=== PATIENT | male | born 1985 | race Caucasian/White ===

== ENCOUNTER 2020-06-29 06:54 | Outpatient (NON) | payer OTHER, SELFPAY ==
[2020-06-29 21:48] LABS: SARS-CoV-2 RNA PCR Negative
== END 2020-06-29 06:55 ==
LOC: ANHCOVIDDT 06:55
PROVIDERS: PCP Family Medicine; Visit Provider Physician Assistant
DX: R68.89 Other general symptoms and signs (principal); Z20.828 Contact with and (suspected) exposure to other viral communicable diseases
CPT/HCPCS: 87635; C9803; U0003

== ENCOUNTER 2021-01-06 19:43 | Emergency (ER) | payer OTHER, SELFPAY ==
--- NOTE | ~2021-01-06 | XR_ITS ---
EXAMINATION: XR chest 2V 01/06/2021 20:14 INDICATION: Chest palpitations PROCEDURE: 2 view chest COMPARISON: Comparison to multiple prior studies sequentially, with oldest reviewed study dated 02/20. FINDINGS: The lungs are clear. The cardiomediastinal silhouette is within normal limits. There are no pleural effusions. There is no pneumothorax suspected. IMPRESSION: 1: NO ACUTE CARDIOPULMONARY DISEASE. Reviewed, dictated and finalized at location A.
[2021-01-06 19:45] VITALS: BP 147/82; PULSE 60; RESP 16; TEMP 36.6; O2SAT 100
--- NOTE | 2021-01-06 19:47 | ECG_ITS ---
Measurements Intervals [place] Rate: 58 P: 64 NM: 162 QRS: 77 QRSD: 109 T: 59 QT: 402 QTc: 397 Interpretive Statements SINUS BRADYCARDIA INCOMPLETE RIGHT BUNDLE BRANCH BLOCK BASELINE ARTIFACT- AVF BORDERLINE ECG Electronically Signed On 01-06-2021 20:14:25 CDT by Romario Sandhu D.O.
--- NOTE | 2021-01-06 20:02 | ED.GENADULT ---
HPI - General Adult General Chief complaint: Arrhythmia/Palpitations Stated complaint: chest tingling Time Seen by Provider: 01/06/21 19:50 Source: RN notes reviewed History of Present Illness HPI narrative: Patient presents to emergency department from home for palpitations. Patient states that he just finished eating dinner when he began to feel funny feeling in his chest with a feeling of palpitations he states that he has had a history of arrhythmias with a work-up including several visits to cardiology since his late 20s with him stating they did find that he had occasional arrhythmia but cannot recall the exact name he states that with the symptoms today he developed metallic taste in his mouth as well as tingling in his right arm he states his symptoms are improved at this time he denies any fevers or chills chest pain abdominal pain nausea vomiting or any other symptoms Related Data Home Medications Medication Instructions Recorded Confirmed multivitamin 1 tablet PO DAILY 07/25/20 01/06/21 omega-3 fatty acids 1,000 mg 1,000 mg PO DAILY 07/25/20 01/06/21 capsule Allergies Allergy/AdvReac Type Severity Reaction Status Date / Time No Known Allergies Allergy Verified 01/06/21 19:48 Review of Systems Review of Systems: Narrative: Gen.: Denies fevers or chills Eyes: Denies eye pain or visual change ENT: Denies congestion Respiratory: Denies shortness of breath or cough CV: See HPI GI: Denies abdominal pain nausea, emesis or diarrhea Musculoskeletal: Denies back pain or muscle pain Neuro: Pain in right arm denies weakness Skin: Denies rash Except as documented, all other systems reviewed and negative [facility] Past Medical History Medical History (Updated 01/06/21 @ 23:36 by Ayan Parker DO) Anxiety Palpitations Surgical History Surgical History History of hernia surgery History of knee surgery Hx of tonsillectomy Family History Family History Other No pertinent family history Social History Social History Smoking status: Never smoker Second hand tobacco smoke exposure: No Alcohol intake: current Alcohol use details: Social only. Substance use: never Substance use type: does not use Gender identity (if verbalized by the patient): Male Spiritual care concerns: Yes Agree to blood products: Yes Exam Narrative: Exam Narrative: APPEARANCE: No acute distress, nontoxic, resting in bed EYES: EOMI HEENT: Normocephalic, atraumatic, OMM RESPIRATORY: No respiratory distress Clear to auscultation bilaterally with no rhonchi wheezing or rales. CARDIOVASCULAR: Regular rate and rhythm without murmurs rubs or gallops. ABDOMINAL: Soft, nontender, nondistended, no rebound or guarding MUSCULOSKELETAl: Moves all extremities. No clubbing, cyanosis or edema. NEURO: Awake and alert. Following commands, speech normal, no focal deficits SKIN:: Warm, dry. No rashes lesions or abrasions PSYCHIATRIC: Normal affect/mood, Course Course Emergency Course: Patient remained on cardiac/vascular sonographer in ED with no arrhythmias noted Discussed with patient results of workup and diagnosis. Discussed need for follow-up with primary care, proper use of medication, and reasons to return to the emergency department. Patient understands and agrees to current treatment plan Vital Signs Vital signs: Vital Signs Temperature 97.8 F 01/06/21 19:45 Pulse Rate 60 01/06/21 19:45 Respiratory Rate 16 01/06/21 19:45 Blood Pressure 147/82 H 01/06/21 19:45 Pulse Oximetry 100 01/06/21 19:45 Temperature 97.8 F 01/06/21 19:45 Pulse Rate 66 01/06/21 21:44 Respiratory Rate 19 01/06/21 21:44 Blood Pressure 119/67 01/06/21 21:44 Pulse Oximetry 100 01/06/21 21:44 Medical Decision Making Vital Signs Vital Signs: Vital Signs
[2021-01-06 20:11] LABS: Basophils Percent Auto 0.5 % (0.2-1.2); Eosinophils Absolute Auto 0.1 K/mm3 (0-0.3); Eosinophils Percent Auto 2.4 % (0-4.4); Immature Granulocyte Absolute 0.01 K/mm3 (0.00-0.031); Immature Granulocyte Percent A 0.2 % (0-0.5); Lymphocytes Absolute Auto 2.36 K/mm3 (0.9-3.2); Lymphocytes Percent Auto 43.2 % (18.3-44.2); Mean Corpuscular HGB Conc 33.3 g/dl (32-36); Mean Corpuscular Hemoglobin 29.3 pg (26-34); Mean Corpuscular Volume 87.9 fl (80-100); Mean Platelet Volume 9.7 fl (7.4-10.4); Monocytes Absolute Auto 0.6 K/mm3 (0.1-0.6); Monocytes Percent Auto 11.2 % (2.6-8.5); Neutrophils Absolute Auto 2.3 K/mm3 (1.3-6.7); Neutrophils Percent Auto 42.5 % (45.5-73.1); Platelet Count Result 223 k/mm3 (150-375); Red Blood Count 5.46 M/mm3 (4.6-6.20); White Blood Count 5.5 K/mm3 (4.5-10.0)
[2021-01-06 20:21] LABS: Prothrombin Time 12.9 Seconds (11.1-14.7)
[2021-01-06] MEDS: ASPIRIN 81 MG CHEWABLE TABLET 324 MG PO (20:21)
[2021-01-06 20:22] LABS: Anion Gap 8 mmol/L (8-16); Blood Urea Nitrogen 18 mg/dL (9-20); Calcium 9.3 mg/dL (8.4-10.2); Carbon Dioxide 31 mmol/L (22-30); Chloride 101 mmol/L (98-107); Estimated CRCL calculation 101 ml/min; Estimated Glomerular Filt Rate > 60; Glucose 97 mg/dL (75-110); Partial Thromboplastin Time 27.7 SECONDS (22.3-36.8); Sodium 140 mmol/L (137-145)
[2021-01-06 20:23] LABS: Alanine Aminotransferase 20 U/L (4-50); Alkaline Phosphatase 81 U/L (38-126); Aspartate Amino Transferase 37 U/L (17-59); Bilirubin,Total 0.8 mg/dL (0.2-1.3); Lipase 144 U/L (23-300); Magnesium 2.2 mg/dL (1.6-2.3)
[2021-01-06 20:34] LABS: Troponin I < 0.012 ng/mL (0.000-0.034)
[2021-01-06 20:51] VITALS: BP 120/73; PULSE 63; RESP 15; O2SAT 100
[2021-01-06 21:44] VITALS: BP 119/67; PULSE 66; RESP 19; O2SAT 100
[2021-01-06 23:15] LABS: Troponin I < 0.012 ng/mL (0.000-0.034)
[2021-01-06 23:51] VITALS: BP 123/77; PULSE 66; RESP 17; O2SAT 100
== END 2021-01-06 23:52 | disposition home or self-care (01) ==
PROVIDERS: Emergency Medicine; Emergency Provider Emergency Medicine; PCP Physician Assistant
DX: R00.2 Palpitations (principal); R00.1 Bradycardia, unspecified; I45.10 Unspecified right bundle-branch block
CPT/HCPCS: 36415; 71046; 80048; 80076; 83690; 83735; 84484; 85025; 85610; 85730; 93005; 99284; A9270

== ENCOUNTER 2023-03-08 17:39 | Emergency (ER) | payer OTHER, SELFPAY ==
[2023-03-08] VITALS (17 sets, daily range): BP systolic 127–143; BP diastolic 77–91; PULSE 62–66; RESP 18–20; TEMP 36.4; O2SAT 100
--- NOTE | ~2023-03-08 | CT_ITS ---
EXAMINATION: CT cervical spine wo con DATE: 03/08/2023 18:35 INDICATION: head trauma with neck pain TECHNIQUE: Computed tomography (CT) of the cervical spine was performed without intravenous contrast. Automated exposure control and iterative reconstruction technique were employed. The dose-length pro duct was 418.00 mGy-cm. COMPARISON: None. FINDINGS: Vertebral Body Alignment: Intact. Upper cervical spine straightening which can occur with positioning or spasm. Craniocervical and atlantoaxial alignment: No significant degenerative change. Alignment intact. Osseous structures/fracture: No evidence of a lytic or blastic process in the visualized spine. No e vidence of acute fracture. Cervical soft tissues: The paraspinal soft tissues planes are maintained. Degenerative changes: No significant degenerative changes. IMPRESSION: No acute fracture or traumatic malalignment in the cervical spine. Reviewed, dictated and finalized at location K.
--- NOTE | ~2023-03-08 | CT_ITS ---
EXAMINATION: CT brain wo con DATE: 03/08/2023 18:35 INDICATION: head injury . TECHNIQUE: Computed tomography (CT) of the head was performed without intravenous contrast. The mA wa s adjusted according to patient size. Iterative reconstruction technique was employed. The dose-lengt h product was 605.33 mGy-cm. COMPARISON: None. FINDINGS: No acute intracranial hemorrhage or extra-axial fluid collection. No hydrocephalus, mass, or herniation. No acute ischemic infarct. Unremarkable dural venous sinus attenuation. No acute osseous abnormality. Left frontotemporal laceration. The aerated spaces are clear. IMPRESSION: No acute intracranial process. Reviewed, dictated and finalized at location K.
--- NOTE | 2023-03-08 18:22 | ED.GENADULT ---
HPI - General Adult General Chief complaint: Head Injury Stated complaint: head injury Time Seen by Provider: 03/08/23 18:02 Source: patient Mode of arrival: ambulatory Limitations: no limitations History of Present Illness HPI narrative: This is a 38-year-old male who presents to the ED with chief complaint of a head injury that occurred just prior to arrival. Patient states he was playing tag in the park and accidentally ran into the bottom of a bridge. He reports he ran face first into a metal beam which then knocked him onto his back. He reports that he has some neck pain as well as headache. Reports laceration to the left superior eyebrow. Endorses slight weakness of the left eyebrow. Denies LOC, extremity numbness or weakness. Related Data Home Medications Medication Instructions Recorded Confirmed multivitamin 1 tablet PO DAILY 07/25/20 01/06/21 omega-3 fatty acids 1,000 mg 1,000 mg PO DAILY 07/25/20 01/06/21 capsule (Fish Oil Concentrate) Allergies Allergy/AdvReac Type Severity Reaction Status Date / Time No Known Allergies Allergy Verified 03/08/23 18:15 Review of Systems Review of Systems: All systems as dictated in [facility] Past Medical History Medical History (Updated 03/09/23 @ 00:00 by Clay Thomas) Anxiety Palpitations Surgical History Surgical History History of hernia surgery History of knee surgery Hx of tonsillectomy Family History Family History Other No pertinent family history Social History Social History Smoking status: Never smoker Second hand tobacco smoke exposure: No Alcohol intake: current Alcohol use details: Social only. Substance use: never Substance use type: does not use Living arrangements: with family Occupation/Education: occupation Gender identity (if verbalized by the patient): Male Spiritual care concerns: Yes Agree to blood products: Yes Exam Narrative: GENERAL: Well-appearing, well-nourished, and in no acute distress. HEAD: Normocephalic, atraumatic. EYES: PERRLA and EOMI. slight ptosis to the left eye. Difficulty with raising the left eyebrow. ENT: Nares clear, no rhinorrhea or epistaxis. Mucous membranes moist. Oropharynx without tonsillar hypertrophy exudate or other lesions. NECK: Supple. No adenopathy or masses. CHEST: No respiratory distress. Clear to auscultation. No wheezes rales or rhonchi HEART: Regular rate and rhythm. No murmur heard. Normal peripheral pulses. ABDOMEN: Soft, nontender, nondistended, normal active bowel sounds. MSK: Normal range of motion. No edema. SKIN: There is a 5 cm angled laceration just superior to the left eyebrow. Bleeding is controlled. There appears to be damage to the deep structures including potential muscle damage. Sensation is intact around the laceration. NEURO: Alert and oriented x3. No focal deficits. PSYCH: Normal mood and affect. Course Course Emergency Course: Spoke with Dr. Orr ([facility]): He initially states that they will be able to see the patient in the [facility] for further evaluation. He advises that they may need to do an exploratory procedure to locate a damaged facial nerve branch. 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 Consult Dr. Orr again: He spoke with his chief resident who was advising that they would not do an exploration like if he has any muscle function of the eyebrow as it is most likely a partial nerve injury. Reevaluated the patient: He does have some apparent frontalis function. There is still some ptosis of the left eyebrow. We discussed transfer versus staying here in the ER and following up with facial plastics outpatient. Patient elects to stay here and have the laceration repaired knowing that there is
--- NOTE | 2023-03-08 19:05 | PC.NURSE ---
This Rn assumed care of patient. This Rn took patient report from JANA Park.
== END 2023-03-08 21:13 | disposition home or self-care (01) ==
PROVIDERS: Emergency Provider Physician Assistant; PCP Internal Medicine
DX: S01.81XA Laceration without foreign body of other part of head, initial encounter (principal); W22.09XA Striking against other stationary object, initial encounter; Y92.830 Public park as the place of occurrence of the external cause
CPT/HCPCS: 12013; 70450; 72125; 99284